=== PATIENT | female | born 1995 | race American Indian/Alaskan Native ===

== ENCOUNTER 2024-10-23 22:22 | Inpatient (IN) | payer OTHER ==
[~2024-10-23] VITALS: Ht 177.8 cm; Wt 77.0 kg
[2024-10-23 23:15] VITALS: BP 106/63; PULSE 87; RESP 18; TEMP 98.1; O2SAT 96
[2024-10-23] MEDS ORDERED: ONDANSETRON HCL 4 MG/2 ML VIAL IV PRN (23:45)
[2024-10-23] MEDS ORDERED: VANCOMYCIN PER PHARMACY 0 MG IV SCH (23:45)
[2024-10-23] MEDS ORDERED: MORPHINE SULFATE INJ 2 MG/ml SYRG IV PRN (23:45)
--- NOTE | 2024-10-23 23:46 | DVHHPRES ---
History of Present Illness Resident Creating Document: ERA FRAZIER RESIDENT History of Present Illness Rosa Johnson is a 28-year-old female patient who presents to ED transferred from [facility] with chief complaint of multiple episodes of rigors (chills and fever), right breast pain, purulent white/greenish discharge from nipple and nausea which started on the day of her admission. Patient presented similar symptoms on 10/01/2024 where she was diagnosed with mastitis in completed p.o. antibiotic dicloxacillin (10 days), she is currently breast- feeding her [id number] child. Denies palpitation, syncope, chest pain, dyspnea, abdominal pain, vomiting, diarrhea, constipation, sick contacts, recent travel, bleeding and motor or sensory deficits. Past medical history: Mariana thyroiditis, 10/01/2024 mastitis treated with course of p.o. antibiotics for 10 days (dicloxacillin) group burner machine: Gestations 4, abortions 3 (old in 1st trimester, last one was approximately 12 months ago, per specialists probably secondary to Mariana thyroiditis) and para 1 (vaginal ). Patient is currently trying to get again. Last menstrual period on 10/18/2024 (they are currently irregular due to breast-feeding) Surgical history: tonsillectomy of age of [age], dental extraction in 2019 Family history: Sister has Sujit-Danlos. Bleeding disorder in family Social history: Lives in [place] with and son. 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 Denies current tobacco, alcohol and other drug abuse Allergies: Questionable penicillin (received dicloxacillin with no reaction) Home medication: vitamins, levothyroxine 75 mcg p.o. daily Patient seen and examined at bedside. Currently has no new complaints. Presents exquisite pain when moving or palpating right breast. Past Medical History Per HPI Past Surgical History Per HPI Family History Per HPI Past Social History Per HPI Review of Systems Review of Systems Per HPI Allergies: Coded Allergies: Penicillins (Verified Allergy, Unknown, 10/24/24) Questionable Medications Current Medications Medications Dose Ordered Sig/Jesse Route Start Time Stop Time Status Last Admin Dose Admin Acetaminophen 650 mg Q6HP PRN PO 10/23/24 23:45 UNV Ondansetron HCl 4 mg Q4HP PRN IV 10/23/24 23:45 UNV Morphine Sulfate 2 mg Q4HPRN PRN IV 10/23/24 23:45 UNV Vancomycin HCl 0 ml @ 0 mls/hr UD IV 10/23/24 23:45 UNV Exam Exam Patient lying in bed, in no acute distress General: Lucid, afebrile, mucosae are moist Cardiovascular: Tachycardic, Normal S1 and S2. No murmurs, gallops or rubs Respiratory: Normal ventilation mechanics. Clear lung sounds on auscultation Abdomen: Soft, nontender, no organomegaly, normal bowel sounds MSK/skin: Mobilizes 4 limbs. Skin is dry and warm. Presents right breast with yellowish purulent discharge, erythema empiric IV areolar complex and lymph in tract on lateral aspect of breast, exquisite tenderness on superficial palpation, no obvious fluctuating mass on palpation, does present palpable right axillary lymph nodes. Left breast has mild tenderness, nor erythema, no lymph nodes and no purulent discharge on examination Neurological: Oriented in 3 spheres. No motor no sensitive deficits. Pupils are isocoric and reactive Assessment/Plan Assessment/Plan Assessment: Mastitis of right breast Rule out abscess Mariana thyroiditis History of multiple abortions Questionable history of penicillin allergy Plan: Currently on IV vancomycin. Ordered panculture (blood, urine and wound culture) Wound Care consulted Ordered right breast ultrasound to rule out abscess Continue home medication (levothyroxine 75 mcg p.o. daily) Goals of care discussed with patient for over 18 minutes: Full code status Discussed plan with Dr. Mcintosh, patient and nurses: Ordered right breast ultrasound to rule out breast abscess, if positive we will have to consult rn neurosurgical for eventual incision and drainage. Currently under empiric IV antibiotic (vancomycin). Plan discussed with: Patient, Other (Nurses) My Orders Orders - ERA FRAZIER RESIDENT Procedure Category Date Status Time Admit ADMIT 10/23/24 Transmitted 23:42 Code Status CODE 10/23/24 Transmitted 23:42 Vital Signs CATA 10/23/24 In Process 23:42 Review Orders With CATA 10/23/24 In Process Adm. 23:42 Regular Diet DIET 10/24/24 Transmitted Breakfast Acetaminophen Tablet PHA 10/23/24 Logged (Tylenol Tablet) 23:45 Notify Of Changes CATA 10/23/24 In Process From Base 23:42 Advance Directive CATA 10/23/24 In Process 23:42 Complete Blood Count LAB 10/23/24 Logged 23:42 Lipid Panel LAB 10/23/24 Logged 23:42 Blood Culture ELIZA 10/23/24 Logged 23:42 Urine Bacterial ELIZA 10/23/24 Logged Culture 23:42 Patient Condition ORDERS 10/23/24 Transmitted 23:42 Allergies CATA 10/23/24 In Process 23:42 Ondansetron Hcl PHA 10/23/24 Logged (Zofran) 23:45 Drug Screen LAB 10/23/24 Logged 23:42 Hemoglobin A1c LAB 10/23/24 Logged 23:42 Morphine Sulfate PHA 10/23/24 Logged Injection 23:45 Oxygen By Nasal RT 10/23/24 Transmitted Cannula 23:42 Stat Ekg For Chest CATA 10/23/24 In Process Pain 23:42 Notify Md Of Changes [facility] 10/23/24 In Process From Base 23:42 Equity Analyst For [facility] 10/23/24 In Process 24 Hours 23:42 Emergency Dysrhythmia [facility] 10/23/24 In Process Protocol 23:42 Rhythm Strips Once [facility] 10/23/24 In Process Every Shift 23:42 Vitamin D, 25-Hydroxy LAB 10/23/24 Logged 23:42 Vitamin B12 LAB 10/23/24 Logged 23:42 PTPTT LAB 10/23/24 Logged 23:42 Phosphorus LAB 10/23/24 Logged 23:42 Magnesium LAB 10/23/24 Logged 23:42 Thyroid Stimulating LAB 10/23/24 Logged Hormone 23:42 Comprehensive LAB 10/23/24 Logged Metabolic Panel 23:42 Lactic Acid W/ Reflex LAB 10/23/24 Logged Order 23:42 L Breast Ultrasound US 10/23/24 Logged 23:42 R Breast Ultrasound US 10/23/24 Logged 23:42 Vancomycin Per PHA 10/23/24 Logged Pharmacy 23:45 Complete Blood Count LAB 10/24/24 Verified 04:00 Basic Metabolic Panel LAB 10/24/24 Verified 04:00 Date of Service: Oct 23, 2024 Billing Provider: EUGENIO MCINTOSH MD Common Visit Codes: [id number] INP/OBS CARE (HIGH) Secondary Visit Codes: [id number] CARE PLAN 30 MINUTES ERA FRAZIER RESIDENT Oct 23, 2024 23:46 EUGENIO MCINTOSH MD Oct 24, 2024 09:55
[2024-10-24] VITALS (9 sets, daily range): BP systolic 104–118; BP diastolic 41–67; PULSE 87–121; RESP 18–20; TEMP 98.3–101.2; O2SAT 96–99
[2024-10-24 00:25] LABS: Basophils # (auto) 0 10 ^3/uL (0-0.2); Basophils % (auto) 0.2 % (0.0-2.0); Eosinophils # (auto) 0 10 ^3/uL (0-0.8); Hematocrit 35.1 % (36.0-46.0); Hemoglobin 11.8 g/dL (12.2-16.2); Lymphocytes # (auto) 1.1 10 ^3/uL (0.4-5.4); Lymphocytes % (auto) 11.2 % (10.0-50.0); Mean Corpuscular Hemoglobin 28.8 pg (28.0-32.0); Mean Corpuscular Hgb Conc. 33.7 g/dL (32.0-36.0); Mean Corpuscular Volume 85.5 fL (80.0-100.0); Monocytes # (auto) 0.8 10 ^3/uL (0-1.3); Monocytes % (auto) 8.3 % (0.0-12.0); Neutrophils # (auto) 7.8 10 ^3/uL (1.6-8.6); Neutrophils % (auto) 80.3 % (37.0-80.0); Platelet Count (auto) 185 10^3/uL (140-450); Red Blood Cells 4.11 10^6/uL (4.0-5.20); Red Cell Distribution Width 15.1 % (11.8-14.3); White Blood Cell 9.8 10^3/uL (4.4-10.8)
[2024-10-24 00:37] LABS: Carbon Dioxide 25 mmol/L (20-31)
[2024-10-24 00:38] LABS: Albumin 4.4 g/dL (3.2-4.8); Anion Gap 7 (5-15); BUN/Creatinine Ratio 12.3 (10.0-20.0); Bilirubin, Total 0.5 mg/dL (0.2-1.0); Blood Urea Nitrogen 10 mg/dL (9-23); Glucose 100 mg/dL (74-106); INR 1.08 (0.9-1.15); Magnesium 1.7 mg/dL (1.6-2.6); Partial Thromboplastin Time 30.3 SEC (24.5-34.5); Phosphorus 3.4 mg/dL (2.4-5.1); Prothrombin Time 11.4 sec (9.3-11.8); Sodium 140 mmol/L (136-145); Total Protein 7.1 g/dL (5.7-8.2)
[2024-10-24 00:55] LABS: Alanine Aminotransferase < 9 U/L (7-40); Alkaline Phosphatase 35 U/L (46-116); Aspartate Aminotransferase 10 U/L (13-40); Chloride 108 mmol/L (98-107); Potassium 3.5 mmol/L (3.5-5.1)
[2024-10-24] MEDS ORDERED: PREN-129 OR (01:09)
[2024-10-24] MEDS ORDERED: LEV75T PO (01:09)
[2024-10-24] MEDS ORDERED: FER325T PO (01:09)
[2024-10-24 01:39] LABS: Triglycerides 40 mg/dL (< 150)
[2024-10-24 01:40] LABS: LDL Cholesterol 43 mg/dL (< 100)
[2024-10-24 01:41] LABS: Cholesterol 106 mg/dL (< 200); HDL Cholesterol 53 mg/dL (40-59)
[2024-10-24] MEDS: KETOROLAC TROMETH 30 MG/ML 1ML VIAL IV PRN (02:44)
[2024-10-24 03:18] LABS: Urine Bacteria None Seen /hpf (None Seen)
[2024-10-24 03:43] LABS: Urine Blood 2+ /uL (Negative); Urine Clarity Clear (Clear); Urine Color Colorless (Yellow); Urine Protein, UAD Negative (Negative); Urine Specific Gravity 1.013 (1.001-1.035); Urine Squamous Epithelial Cell FEW /hpf (<5); Urine Urobilinogen Normal (Negative); Urine WBC 1 /HPF (0-5)
[2024-10-24 04:09] LABS: Amphetamine Screen, Urine Neg (NEGATIVE); Barbiturate Scree,Urine Neg (NEGATIVE); Benzodiazephine Screen, Urine Neg (NEGATIVE); Cannabinoid Screen, Urine Neg (NEGATIVE); Cocaine Screen, Urine Neg (NEGATIVE); Opiate Scree,Urine Neg (NEGATIVE); Phencyclidine Screen, Urine Neg (NEGATIVE)
[2024-10-24] MEDS: LEVOTHYROXINE SODIUM 25 MCG TAB PO SCH (05:39)
--- NOTE | 2024-10-24 06:08 | DVH ---
US OF THE RIGHT BREAST INDICATION: Mastitis TECHNIQUE: All 4 quadrants, subareolar region and axillary region of the RIGHT breast were evaluated with ultrasound COMPARISON: None FINDINGS: No solid or suspicious masses. No areas of architectural distortion. No malignant adenopathy. No dominant cysts are present. Morphologically benign right axillary lymph node measures 1.3 cm. IMPRESSION: There is no sonographic evidence for malignancy. ACR Bi Rads Category:Category 2
[2024-10-24 06:11] LABS: Basophils # (auto) 0 10 ^3/uL (0-0.2); Basophils % (auto) 0.3 % (0.0-2.0); Eosinophils # (auto) 0 10 ^3/uL (0-0.8); Hematocrit 33.2 % (36.0-46.0); Hemoglobin 11.2 g/dL (12.2-16.2); Lymphocytes % (auto) 11.9 % (10.0-50.0); Mean Corpuscular Hemoglobin 29.1 pg (28.0-32.0); Mean Corpuscular Hgb Conc. 33.7 g/dL (32.0-36.0); Mean Corpuscular Volume 86.4 fL (80.0-100.0); Monocytes # (auto) 0.6 10 ^3/uL (0-1.3); Monocytes % (auto) 7.6 % (0.0-12.0); Neutrophils # (auto) 6.4 10 ^3/uL (1.6-8.6); Neutrophils % (auto) 80.2 % (37.0-80.0); Platelet Count (auto) 160 10^3/uL (140-450); Red Blood Cells 3.84 10^6/uL (4.0-5.20); Red Cell Distribution Width 15.5 % (11.8-14.3)
[2024-10-24 06:14] LABS: Anion Gap 8 (5-15); Carbon Dioxide 22 mmol/L (20-31); Sodium 138 mmol/L (136-145)
[2024-10-24 06:20] LABS: BUN/Creatinine Ratio 11.7 (10.0-20.0); Glucose 92 mg/dL (74-106)
[2024-10-24 06:21] LABS: Chloride 108 mmol/L (98-107); Potassium 3.4 mmol/L (3.5-5.1)
[2024-10-24 06:22] LABS: Blood Urea Nitrogen 9 mg/dL (9-23)
[2024-10-24] MEDS: ACETAMINOPHEN 325 MG TAB PO PRN (07:05)
[2024-10-24] MEDS: POTASSIUM EFFERVESENT TAB 25 MEQ PO ONE (08:39)
[2024-10-24] MEDS: SODIUM CHLORIDE 0.9% 1,000 ML IV ONE (08:48)
[2024-10-24] MEDS: SODIUM CHLORIDE 0.9% 1,000 ML IV SCH (10:46)
--- NOTE | 2024-10-24 12:53 | DVHPN2 ---
Subjective Seen and examined at bedside with EVAN Leary. Cont IV Abx, await wound cultures. Patient wishes to continue breast feeding. Changes from previous H/P or p: No Changes Objective Vitals Vital Signs Date Time Temp Pulse Resp B/P (MAP) Pulse Ox O2 Delivery O2 Flow Rate FiO2 10/24/24 12:43 101.2 101.2 10/24/24 08:00 Room Air* 0 21 10/24/24 05:00 108 19 105/41 (62) 96 Intake/Output Intake and Output 10/24/24 06:59 Intake Total 750 ml Balance 750 ml Intake Oral 350 ml IV Total 400 ml # Voids 2 General Appearance: Alert, Oriented X3, Cooperative, No acute distress HEENT: Atraumatic Chest/Breasts: Other (Right breast tenderness, minimal drainage from nipple. ) Cardiovascular: Regular rate, Normal S1, Normal S2 Abdomen: Normal bowel sounds, Soft Psych/Mental Status: Mental status NL Medications Current Medications Medications Dose Ordered Sig/Jesse Route Start Time Stop Time Status Last Admin Dose Admin Acetaminophen 650 mg Q6HP PRN PO 10/23/24 23:45 10/24/24 07:05 650 MG Ondansetron HCl 4 mg Q4HP PRN IV 10/23/24 23:45 Morphine Sulfate 2 mg Q4HPRN PRN IV 10/23/24 23:45 Vancomycin HCl 0 ml @ 0 mls/hr UD IV 10/23/24 23:45 Levothyroxine Sodium 75 mcg QAM@0600 PO 10/24/24 06:00 10/24/24 05:39 75 MCG Ketorolac Tromethamine 15 mg Q8HPRN PRN IV 10/24/24 02:15 10/29/24 02:14 10/24/24 12:37 15 MG Sodium Chloride 1,000 ml @ 75 mls/hr [id number] IV 10/24/24 07:45 10/24/24 10:46 75 MLS/HR Vancomycin HCl 250 ml @ 200 mls/hr Q12H IV 10/24/24 16:00 Laboratory Results Laboratory Tests 10/24/24 04:48 Chemistry Test 10/24/24 00:10 10/24/24 04:48 Albumin 4.4 g/dL (3.2-4.8) Calcium Level 9.0 mg/dL (8.7-10.4) 9.0 mg/dL (8.7-10.4) Magnesium Level 1.7 mg/dL (1.6-2.6) Phosphorus Level 3.4 mg/dL (2.4-5.1) Total Protein 7.1 g/dL (5.7-8.2) Coagulation Test 10/24/24 00:10 Prothrombin Time 11.4 sec (9.3-11.8) Prothrombin Time INR 1.08 (0.9-1.15) Activated Partial Thromboplast Time 30.3 SEC (24.5-34.5) Lipid panel Test 10/24/24 00:10 Cholesterol Level 106 mg/dL (< 200) HDL Cholesterol 53 mg/dL (40-59) Triglycerides Level 40 mg/dL (< 150) LFT Test 10/24/24 00:10 Alanine Aminotransferase (ALT) < 9 U/L (7-40) Alkaline Phosphatase 35 U/L (46-116) L Aspartate Amino Transferase (AST) 10 U/L (13-40) L Total Bilirubin 0.5 mg/dL (0.2-1.0) HgA1c, TSH Test 10/24/24 00:10 Hemoglobin A1c 5.1 % A1C (<5.7) Thyroid Stimulating Hormone (TSH) 3.87 uIU/mL (0.55-4.78) Urinalysis Test 10/24/24 02:56 Urine Color Colorless (Yellow) Urine Clarity Clear (Clear) Urine pH 6.0 (5.0-9.0) Urine Specific [place] 1.013 (1.001-1.035) Urine Protein Negative (Negative) Urine Ketones Negative (Negative) Urine Blood 2+ /uL (Negative) H Urine Nitrite Negative (Negative) Urine Bilirubin Negative (Negative) Urine Urobilinogen Normal mg/dL (Negative) Urine Leukocyte Esterase Negative /uL (Negative) Urine RBC 1 /hpf (0 - 4) Urine Microscopic WBC 1 /HPF (0-5) Urine Squamous Epithelial Cells Few /hpf (<5) Urine Bacteria None seen /hpf (None Seen) Urine Glucose Normal mg/dL (Normal) Assessment/Plan Assessment/Plan Mastitis of right breast- Vanco IV Rule out abscess - US done Mariana thyroiditis- Cont Levothyroixine History of multiple abortions Plan discussed with: Patient My Orders Orders - EUGENIO HOOVER MD Procedure Category Date Status Time Mrsa Screen ELIZA 10/24/24 In Process 01:23 Ergocalciferol PHA 10/24/24 Verified (Vitamin D 50,000 13:00 Vancomycin Per PHA 10/24/24 Verified Pharmacy 13:00 Date of Service: Oct 24, 2024 Billing Provider: EUGENIO HOOVER MD Common Visit Codes: [id number] INP/OBS CARE(HIGH) EUGENIO HOOVER MD Oct 24, 2024 12:53
[2024-10-24] MEDS ORDERED: VANCOMYCIN PER PHARMACY 0 MG IV SCH (13:00)
[2024-10-24] MEDS: ERGOCALCIFEROL 50,000 UNIT(1.25MG) CAP PO SCH (16:13)
[2024-10-24] MEDS: VANCOMYCIN 1.25GM/250ML 250 ML IV SCH (16:14)
[2024-10-25 05:00] VITALS: BP 110/69; PULSE 89; RESP 18; TEMP 98.5; O2SAT 97
[2024-10-25 06:10] LABS: Basophils # (auto) 0 10 ^3/uL (0-0.2); Basophils % (auto) 0.4 % (0.0-2.0); Eosinophils # (auto) 0 10 ^3/uL (0-0.8); Eosinophils % (auto) 0.4 % (0.0-7.0); Hematocrit 33.2 % (36.0-46.0); Hemoglobin 11.2 g/dL (12.2-16.2); Lymphocytes % (auto) 32.6 % (10.0-50.0); Mean Corpuscular Hemoglobin 28.9 pg (28.0-32.0); Mean Corpuscular Hgb Conc. 33.7 g/dL (32.0-36.0); Mean Corpuscular Volume 85.7 fL (80.0-100.0); Monocytes # (auto) 0.7 10 ^3/uL (0-1.3); Monocytes % (auto) 11.2 % (0.0-12.0); Neutrophils # (auto) 3.5 10 ^3/uL (1.6-8.6); Neutrophils % (auto) 55.4 % (37.0-80.0); Platelet Count (auto) 167 10^3/uL (140-450); Red Blood Cells 3.88 10^6/uL (4.0-5.20); Red Cell Distribution Width 15.3 % (11.8-14.3); White Blood Cell 6.3 10^3/uL (4.4-10.8)
[2024-10-25 08:00] VITALS: PULSE 91; RESP 12; O2SAT 98
[2024-10-25] MEDS: ENOXAPARIN SOD 40 MG/0.4 ML SYRINGE SC SCH (10:00)
[2024-10-25] MEDS: cefTRIAXone 2GM/50ML D5W 50 ML IV SCH (11:45)
--- NOTE | 2024-10-25 12:29 | DVHPN2 ---
Subjective Seen and examined at bedside, feeling better. Cont Abx, await cultures. Changes from previous H/P or p: No Changes Objective Vitals Vital Signs Date Time Temp Pulse Resp B/P (MAP) Pulse Ox O2 Delivery O2 Flow Rate FiO2 10/25/24 05:00 98.5 89 18 110/69 (83) 97 98.5 10/24/24 20:16 Room Air* 0 21 Intake/Output Intake and Output 10/25/24 07:00 Intake Total 2500 ml Balance 2500 ml Intake Oral 2000 ml IV Total 500 ml # Voids 6 General Appearance: Alert, Oriented X3, Cooperative, No acute distress HEENT: Atraumatic Chest/Breasts: Other (Right breast tenderness, minimal drainage from nipple. ) Cardiovascular: Regular rate, Normal S1, Normal S2 Abdomen: Normal bowel sounds, Soft Psych/Mental Status: Mental status NL Medications Current Medications Medications Dose Ordered Sig/Jesse Route Start Time Stop Time Status Last Admin Dose Admin Acetaminophen 650 mg Q6HP PRN PO 10/23/24 23:45 10/25/24 09:16 650 MG Ondansetron HCl 4 mg Q4HP PRN IV 10/23/24 23:45 Morphine Sulfate 2 mg Q4HPRN PRN IV 10/23/24 23:45 Vancomycin HCl 0 ml @ 0 mls/hr UD IV 10/23/24 23:45 Levothyroxine Sodium 75 mcg QAM@0600 PO 10/24/24 06:00 10/25/24 05:01 75 MCG Ketorolac Tromethamine 15 mg Q8HPRN PRN IV 10/24/24 02:15 10/29/24 02:14 10/24/24 20:34 15 MG Sodium Chloride 1,000 ml @ 75 mls/hr [id number] IV 10/24/24 07:45 10/25/24 10:25 75 MLS/HR Vancomycin HCl 250 ml @ 200 mls/hr Q12H IV 10/24/24 16:00 10/25/24 04:13 200 MLS/HR Ergocalciferol 50,000 unit Q7D PO 10/24/24 13:00 10/24/24 16:13 50,000 UNIT Ceftriaxone Sodium/Dextrose 50 ml @ 50 mls/hr DAILY IV 10/25/24 10:00 10/25/24 11:45 50 MLS/HR Enoxaparin Sodium 40 mg DAILY SC 10/25/24 10:00 Laboratory Results Laboratory Tests 10/24/24 04:48 10/25/24 05:01 Urinalysis Test 10/24/24 02:56 Urine Color Colorless (Yellow) Urine Clarity Clear (Clear) Urine pH 6.0 (5.0-9.0) Urine Specific [place] 1.013 (1.001-1.035) Urine Protein Negative (Negative) Urine Ketones Negative (Negative) Urine Blood 2+ /uL (Negative) H Urine Nitrite Negative (Negative) Urine Bilirubin Negative (Negative) Urine Urobilinogen Normal mg/dL (Negative) Urine Leukocyte Esterase Negative /uL (Negative) Urine RBC 1 /hpf (0 - 4) Urine Microscopic WBC 1 /HPF (0-5) Urine Squamous Epithelial Cells Few /hpf (<5) Urine Bacteria None seen /hpf (None Seen) Urine Glucose Normal mg/dL (Normal) Microbiology Microbiology Date/Time Source Procedure Growth Status 10/24/24 03:57 Nose MRSA Screen - Final Complete 10/24/24 00:10 Blood Blood Culture - Preliminary NO GROWTH AFTER 24 HOURS OF INCUBATION. Resulted Assessment/Plan Assessment/Plan Mastitis of right breast- Vanco IV Rule out abscess - US done Mariana thyroiditis- Cont Levothyroixine History of multiple abortions Plan discussed with: Patient My Orders Orders - EUGENIO HOOVER MD Procedure Category Date Status Time Ergocalciferol PHA 10/24/24 In Process (Vitamin D 50,000 13:00 Ceftriaxone 2gm/50ml PHA 10/25/24 In Process D5w (Rocephin 2gm/5 10:00 Enoxaparin Sodium PHA 10/25/24 In Process (Lovenox) 10:00 Date of Service: Oct 25, 2024 Billing Provider: EUGENIO HOOVER MD Common Visit Codes: [id number] INP/OBS CARE(MOD) EUGENIO HOOVER MD Oct 25, 2024 12:29
[2024-10-26 05:19] LABS: Basophils # (auto) 0.1 10 ^3/uL (0-0.2); Eosinophils # (auto) 0.1 10 ^3/uL (0-0.8); Eosinophils % (auto) 2.2 % (0.0-7.0); Hemoglobin 11.2 g/dL (12.2-16.2); Lymphocytes # (auto) 2.4 10 ^3/uL (0.4-5.4); Lymphocytes % (auto) 43.9 % (10.0-50.0); Mean Corpuscular Hemoglobin 28.8 pg (28.0-32.0); Mean Corpuscular Volume 84.6 fL (80.0-100.0); Monocytes # (auto) 0.7 10 ^3/uL (0-1.3); Monocytes % (auto) 11.9 % (0.0-12.0); Neutrophils # (auto) 2.3 10 ^3/uL (1.6-8.6); Nucleated Red Blood Cells % 0.1 %; Platelet Count (auto) 177 10^3/uL (140-450); Red Cell Distribution Width 14.9 % (11.8-14.3); White Blood Cell 5.6 10^3/uL (4.4-10.8)
[2024-10-26 08:10] VITALS: PULSE 86; RESP 14; O2SAT 99
[2024-10-26] MEDS: POTASSIUM EFFERVESENT TAB 25 MEQ PO ONE (10:11)
[2024-10-26] MEDS ORDERED: CLIN1CAP70 PO (12:36)
[2024-10-26] MEDS ORDERED: SACC250C PO (12:36)
--- NOTE | 2024-10-26 13:36 | DVHDSRES ---
Discharge Summary Date of Admission Resident Creating Document: TAE GALLARDO RESIDENT Oct 23, 2024 at 23:42 Date of Discharge: Oct 26, 2024 Admitting Diagnosis Right breast mastitis Wounds: No wounds at this time Labs/Diagnostic Data: Laboratory Results Test 10/26/24 04:30 10/25/24 15:07 10/24/24 04:48 10/24/24 02:56 White Blood Count 5.6 10^3/uL (4.4-10.8) Red Blood Count 3.90 10^6/uL (4.0-5.20) Hemoglobin 11.2 g/dL (12.2-16.2) Hematocrit 33.0 % (36.0-46.0) Mean Corpuscular Volume 84.6 fL (80.0-100.0) Mean Corpuscular Hemoglobin 28.8 pg (28.0-32.0) Mean Corpuscular Hemoglobin Concent 34.0 g/dL (32.0-36.0) Red Cell Distribution Width 14.9 % (11.8-14.3) Platelet Count 177 10^3/uL (140-450) Mean Platelet Volume 7.4 fL (6.9-10.8) Neutrophils (%) (Auto) 41.0 % (37.0-80.0) Lymphocytes (%) (Auto) 43.9 % (10.0-50.0) Monocytes (%) (Auto) 11.9 % (0.0-12.0) Eosinophils (%) (Auto) 2.2 % (0.0-7.0) Basophils (%) (Auto) 1.0 % (0.0-2.0) Neutrophils # (Auto) 2.3 10 ^3/uL (1.6-8.6) Lymphocytes # (Auto) 2.4 10 ^3/uL (0.4-5.4) Monocytes # (Auto) 0.7 10 ^3/uL (0-1.3) Eosinophils # (Auto) 0.1 10 ^3/uL (0-0.8) Basophils # (Auto) 0.1 10 ^3/uL (0-0.2) Nucleated Red Blood Cells 0.1 % Creatinine 0.65 mg/dL (0.550-1.02) Glomerular Filtration Rate Calc 124 mL/min (>90) Vancomycin Level Trough 11.0 ug/mL (5-10) Sodium Level 138 mmol/L (136-145) Potassium Level 3.4 mmol/L (3.5-5.1) Chloride Level 108 mmol/L (98-107) Carbon Dioxide Level 22 mmol/L (20-31) Anion Gap 8 (5-15) Blood Urea Nitrogen 9 mg/dL (9-23) BUN/Creatinine Ratio 11.7 (10.0-20.0) Serum Glucose 92 mg/dL (74-106) Calcium Level 9.0 mg/dL (8.7-10.4) Urine Color Colorless (Yellow) Urine Clarity Clear (Clear) Urine pH 6.0 (5.0-9.0) Urine Specific [place] 1.013 (1.001-1.035) Urine Protein Negative (Negative) Urine Ketones Negative (Negative) Urine Blood 2+ /uL (Negative) Urine Nitrite Negative (Negative) Urine Bilirubin Negative (Negative) Urine Urobilinogen Normal mg/dL (Negative) Urine Leukocyte Esterase Negative /uL (Negative) Urine RBC 1 /hpf (0 - 4) Urine Microscopic WBC 1 /HPF (0-5) Urine Squamous Epithelial Cells Few /hpf (<5) Urine Bacteria None seen /hpf (None Seen) Urine Glucose Normal mg/dL (Normal) Urine Opiates Screen Neg (NEGATIVE) Urine Fentanyl Screen Neg (NEGATIVE) Urine Barbiturates Screen Neg (NEGATIVE) Urine Phencyclidine Screen Neg (NEGATIVE) Urine Amphetamines Screen Neg (NEGATIVE) Urine Benzodiazepines Screen Neg (NEGATIVE) Urine Cocaine Screen Neg (NEGATIVE) Urine Cannabinoids Screen Neg (NEGATIVE) Test 10/24/24 00:10 Prothrombin Time 11.4 sec (9.3-11.8) Prothrombin Time INR 1.08 (0.9-1.15) Activated Partial Thromboplast Time 30.3 SEC (24.5-34.5) Hemoglobin A1c 5.1 % A1C (<5.7) Lactic Acid Level 0.8 mmol/L (0.4-2.0) Phosphorus Level 3.4 mg/dL (2.4-5.1) Magnesium Level 1.7 mg/dL (1.6-2.6) Total Bilirubin 0.5 mg/dL (0.2-1.0) Aspartate Amino Transferase (AST) 10 U/L (13-40) Alanine Aminotransferase (ALT) < 9 U/L (7-40) Alkaline Phosphatase 35 U/L (46-116) Total Protein 7.1 g/dL (5.7-8.2) Albumin 4.4 g/dL (3.2-4.8) Triglycerides Level 40 mg/dL (< 150) Cholesterol Level 106 mg/dL (< 200) LDL Cholesterol 43 mg/dL (< 100) HDL Cholesterol 53 mg/dL (40-59) Vitamin B12 Level 545 pg/mL (211-911) Vitamin D 25-Hydroxy 23.9 ng/mL (30.0-100) Thyroid Stimulating Hormone (TSH) 3.87 uIU/mL (0.55-4.78) Other Laboratory Tests 10/26/24 04:30 10/24/24 04:48 Brief Hx & Hospital Course: This is a 28-year-old female with past medical history of Mariana thyroiditis, previous episode of mastitis treated with a course of p.o. antibiotics for 10 days of dicloxacillin, who presented to the ED transferred from [facility] with chief complaint of multiple episodes of rigors (chills and fever), right breast pain, purulent white/greenish discharge from nipple and nausea which started on the day of her admission. Patient states that had similar symptoms on 10/01/2024 when she was diagnosed with mastitis and completed antibiotic therapy p.o. with dicloxacillin for 10 days. The patient stated that she is currently breast-feeding her [id number] child. Upon admission, the patient denied palpitation syncope, chest pain, dyspnea, abdominal pain, vomiting, diarrhea or any other symptoms. Initial labs were showing normal WBC, initial labs were grossly unremarkable. The patient had tenderness to palpation of the right breast in the right up outer quadrant. Patient was started on IV vancomycin and ceftriaxone. Ultrasound of the right breast was performed which showed BI-RADS 2 benign, there was no presence of masses, cysts or abscess at this time. Today, patient was seen and examined at bedside. Patient denied breast tenderness, breast discharge, fever/chills, chest pain or any other symptoms at this time. We will discharge the patient home with bactrim po 2 tabs daily for 10 days with probiotics Florastor for 14 days. Patient agrees and understands the plan. ROS Constitutional: Denies weight loss, fever and chills. HEENT: Denies changes in vision and hearing. Respiratory: Denies shortness of breath and cough Cardiovascular: Denies chest discomfort or palpitations GI: Denies abdominal pain, nausea, vomiting and diarrhea. : Denies dysuria and urinary frequency. Musculoskeletal: Denies myalgias and joint pain Skin: Denies rash and pruritus. Neurological: Denies dizziness, headache, vision or hearing problems Physical Examination General: Patient alert and oriented in person, place and time. Patient following commands. HEENT: Normocephalic, atraumatic, moist mucous membranes Respiratory/pulmonary: Clear lungs bilaterally, no associated crackles or wheezes. Cardiovascular: Normal heart sounds S1 and S2 with no associated murmurs Abdomen: Abdomen nondistended, there is no pain to palpation in any of the abdominal quadrants, no palpable masses. Extremities: There is no peripheral edema present at the lower extremities. Peripheral Pulses: 3+ Radial (R). 3+ Radial (L). 3+ Dorsalis pedis (R). 3+ Dorsalis pedis(L) Skin: No rashes or pruritus, there is no sacral edema present at this time. Neurological: Intact cranial nerves with no focal neurologic deficits Consults/Reason for consult N/A Operations or Procedures US OF THE RIGHT BREAST INDICATION: Mastitis TECHNIQUE: All 4 quadrants, subareolar region and axillary region of the RIGHT breast were evaluated with ultrasound COMPARISON: None FINDINGS: No solid or suspicious masses. No areas of architectural distortion. No malignant adenopathy. No dominant cysts are present. Morphologically benign right axillary lymph node measures 1.3 cm. IMPRESSION: There is no sonographic evidence for malignancy. ACR Bi Rads Category:Category 2 Condition at Discharge: Stable Final Diagnosis/Problems List Acute Mastitis of right breast Ruled out abscess of right breast Mariana thyroiditis History of multiple abortions Discharge Disposition: Home Discharge Instruct/Medications Diet: Regular Activity: No Restrictions, As Tolerated Follow Up/Referral: F/U with her PCP in 1 week Medications: Bactrim po 2 tabs daily for 10 days Probiotics PO for 14 days Discharge Statement: "Patient was advised to return to the ER or call 911 if any headaches, dizziness, shortness of breath, chest pain, abdominal pain, bleeding, fevers, or worsening of medical condition. Patient was counseled about treatment plan, medications, possible side effects, patientverbalized understanding. All questions were answered to the best of my ability. This discharge took greater then 30 minutes in planning, reviewing documentation, counseling the patient, and discussing with other team members." ASSESSMENT ASSESSMENT Assessment Acute Mastitis of right breast Ruled out abscess of right breast Mariana thyroiditis History of multiple abortions Date of Service: Oct 26, 2024 Billing Provider: EUGENIO HOOVER MD Common Visit Codes: [id number] DISCH DAY >30min TAE GALLARDO RESIDENT Oct 26, 2024 13:36 EUGENIO HOOVER MD Oct 26, 2024 18:33
[2024-10-26] MEDS ORDERED: SULF800T23 PO (14:13)
[2024-10-26 14:47] VITALS: BP 109/65; PULSE 86; RESP 14; TEMP 98; O2SAT 99
== END 2024-10-26 15:14 | disposition home or self-care (01) | DRG 601 ==
LOC: CENTRAL 23:28 → UNDOADMIN 23:28 → CENTRAL 23:42
PROVIDERS: ADMIT Internal Medicine; ATTEND Internal Medicine
DX: N61.0 Mastitis without abscess (principal); E06.3 Autoimmune thyroiditis; Z88.0 Allergy status to penicillin
CPT/HCPCS: 36415; 76642; 80048; 80053; 80061; 80202; 80307; 81001; 82306; 82565; 82607; 83036; 83605; 83735; 84100; 84443; 85025; 85610; 85730; 87040; 87077; 87081; 87086; 87186; 87205; G0378; J1885